=== PATIENT | female | born 1945 | race Hispanic/Latino ===

== ENCOUNTER 2018-12-25 11:29 | Outpatient (CLI) | payer MEDICARE ==
--- NOTE | 2018-12-25 16:29 | Mammography Report ---
Bone densitometry. History: Postmenopausal. Procedure: Patient scanned with an Hologic DXA System. Examination was performed of the lumbar spin e and bilateral hips. Comparison: 09/16/2015 and 12/16/2010. Findings: The BMD of the lumbar spine is 0.916 gm/cm2 with a T-score of -1.2 and a Z score of +1.0. Percent ch pauline from previous exam is +3.4% and percent change from baseline is +7.6%. The bone mineral density (BMD) of the left femoral neck is 0.634 gm/cm2 with a T-score of -1.9 and a Z score of -0.1. The BMD of the total left hip is 0.844 gm/cm2 with a T-score of -0.8 and a Z score o f +0.8. Percent change is +1.2% from the last study and +3.4% from baseline. Impression: WHO classification: Osteopenia with increased fracture risk based on both spine and left hip measurem ents. A modest improvement compared to the last exam. A more detailed DXA Bone Densitometry report is available upon request from [facility]. Signer Name: Jacob Carrera MD Signed: 12/25/2018 4:24 PM Workstation Name: [id number]
== END 2018-12-25 11:30 | disposition home or self-care (01) ==
LOC: SPVWC 11:29
PROVIDERS: ATTEND Obstetrics & Gynecology
DX: Z13.820 Encounter for screening for osteoporosis (principal); M81.8 Other osteoporosis without current pathological fracture; M85.88 Other specified disorders of bone density and structure, other site; Z78.0 Asymptomatic menopausal state
CPT/HCPCS: 77080